=== PATIENT | male | born 1975 | race Caucasian/White ===

== ENCOUNTER → 2018-04-22 16:49 | Outpatient (CLI) | payer OTHER, SELFPAY ==
--- NOTE | 2018-04-22 16:52 | CT_ITS ---
STUDY: CT MAXILLOFACIAL SINUSES REASON FOR EXAM: Male, 43 years old. Sinusitis RADIATION DOSAGE (If Supplied By Facility): CTDIvol = ( 33.45 ) mGy, DLP = ( 871.67 ) mGycm TECHNIQUE: The patient was scanned in a multi detector CT scanner. High resolution axial imaging was performed without the administration of intravenous contrast material. Sagittal and coronal images were reconstructed. Individualized dose optimization techniques were used for this CT. COMPARISON: None. FINDINGS: FRONTAL SINUSES: Minimal mucoperiosteal thickening of the left frontal sinus. ETHMOIDAL SINUSES: Mild mucoperiosteal thickening of the anterior ethmoid air cells, left greater than right. MAXILLARY SINUSES: Mild mucoperiosteal thickening of bilateral maxillary sinuses with associated bilateral diffuse retention cyst formation, left greater than right. SPHENOIDAL SINUSES: Normal aeration, without mucosal inflammatory disease. There is patency of the bilateral maxillary infundibuli with normal uncinate processes, ethmoid bullae, and hiatus semilunaris. Mild prominence of the turbinate mucosa which mildly narrows the nasal passageways. Normal midline nasal septum. Mastoid air cells are clear. The visualized bilateral orbital contents are normal. CT/Sinus/Facial Bone IMPRESSION: Mild chronic paranasal sinus disease Electronically Signed: Magdiel Good MD at 3:11 EST Tel , Service support ,
== END ==
PROVIDERS: Family Provider Preventive Medicine Occupational Medicine; PCP Preventive Medicine Occupational Medicine; Referring Provider Otolaryngology; Visit Provider Otolaryngology
DX: J32.1 Chronic frontal sinusitis (principal); R51 Headache
CPT/HCPCS: 70486

== ENCOUNTER → 2022-03-22 | Outpatient (CLI) | payer OTHER, SELFPAY | END | disposition home or self-care (01) | LOC: LABSPEC 15:02 | PROVIDERS: PCP Preventive Medicine Occupational Medicine; Referring Provider Otolaryngology; Visit Provider Otolaryngology | DX: J02.9 Acute pharyngitis, unspecified (principal) | CPT/HCPCS: 87070 ==

== ENCOUNTER → 2024-09-12 | Outpatient (CLI) | payer OTHER, SELFPAY ==
--- NOTE | 2024-09-12 17:54 | CT_ITS ---
PROCEDURE: SOFT TISSUE NECK WITH CONTRAST 09/12/2024 REASON FOR EXAM: PAIN TECHNIQUE: SOFT TISSUE NECK WITH CONTRAST CONTRAST: 75 VOLUME: Isovue-300 mL One or more dose reduction techniques were used (e.g., Automated exposure control, adjustment of the mA and/or kV according to patient size, use of iterative reconstruction technique). RADIATION DOSE SUMMARY: CTDlvol: 15 mGy DLP: 475 mGycm COMPARISON: None FINDINGS: The lung apices are clear. Symmetric appearance of the nasopharynx. No parotid mass. Normal oral cavity and tongue base. Normal submandibular glands. No enlarged cervical lymph nodes. No palatine tonsil asymmetry. Normal epiglottis. Symmetric vocal folds. Normal thyroid. No subglottic narrowing. Incidental note is made of a small calcification near the hilum of the left submandibular gland which measures 5 mm. No associated sialoadenitis. CT/Soft Tissue Neck WITH Contrast IMPRESSION: Left-sided submandibular sialolithiasis near the hilum of the gland [facility]
== END | disposition home or self-care (01) ==
PROVIDERS: PCP Preventive Medicine Occupational Medicine; Referring Provider Otolaryngology; Visit Provider Otolaryngology
DX: K11.20 Sialoadenitis, unspecified (principal); R22.1 Localized swelling, mass and lump, neck
CPT/HCPCS: 70491; Q9967

== ENCOUNTER → 2024-11-24 | Outpatient (CLI) | payer OTHER, SELFPAY ==
--- OUTSIDE RECORDS SUMMARY | 2024-06-12 14:00 | XMS RPT_ITS ---
Author Name Auto Generated Organization [facility] Care Team Providers Care Automotive Buyer Name Role Phone UCBA ESCOTO DO Attending Unavailable CUBA ESCOTO DO Primary Care Unavailable REEMA URBANO Attending Unavailable CUBA ESCOTO Primary Care Unavailable PROBLEMS DATE TYPE CONDITION / CODE ATTENDING STATUS [facility] 11/27/2023 Admitting Diagnosis Episodic cluster headache, intractable / G44.011(ICD-10) REEMA URBANO Active [facility] SHS PROCEDURES No Procedure Records Found RESULTS CBC Collected: 5 2:04 PM Status: F Source: [facility] TYPE CODE TESTS RESULT OUT OF RANGE REFERENCE UNITS LAB WBC(LOINC) WBC 7.9 4.5-10.8 10 3/mcL LAB RBCCT(LOINC) RBC 5.04 4.50-6.00 10 6/mcL LAB HGB(LOINC) Hgb 14.6 13.0-17.5 G/dL LAB HCT(LOINC) Hct 43.5 40.0-52.0 % LAB MCV(LOINC) MCV 86.3 81.0-100.0 fL LAB MCH(LOINC) MCH 29.0 27.0-33.0 pg LAB MCHC(LOINC) MCHC 33.6 32.0-36.0 G/dL LAB RDW(LOINC) RDW 13.4 11.5-15.5 % LAB PLT(LOINC) Platelet 315 150-450 10 3/mcL LAB MPV(LOINC) MPV 7.3 6.4-10.5 fL Performed By: #### LIPID, CM P, TSH, ANEU, CBC, ADIFF, FT4, GFR, FT3 #### [address] [address] .AUTO DIFF Collected: 06/12/2024 2:04 PM Status: F Source: [facility] TYPE CODE TESTS RESULT OUT OF RANGE REFERENCE UNITS LAB FABRIZIO(LOINC) Neutrophil % 67.5 50.0-75.0 % LAB LYM(LOINC) Lymphocyte % 22.3 20.0-40.0 % LAB MON(LOINC) Monocyte % 5.9 2.0-13.0 % LAB EO(LOINC) Eosinophil % 3.6 0.0-6.0 % LAB BAS(LOINC) Basophil % 0.7 0.0-2.5 % LAB ABLYM(LOINC) Lymphocyte, Absolute 1.8 0.9-4.3 10 3/mcL LAB MELA(LOINC) Monocyte, Absolute 0.5 0.1-1.4 10 3/mcL LAB AEOS(LOINC) Eosinophil, Absolute 0.3 0.0-0.7 10 3/mcL LAB ABAS(LOINC) Basophil, Absolute 0.1 0.0-0.3 10 3/mcL Performed By: #### LIPID, CM P, TSH, ANEU, CBC, ADIFF, FT4, GFR, FT3 #### [address] [address] .NEUABS Collected: 2:04 PM Status: F Source: [facility] TYPE CODE TESTS RESULT OUT OF RANGE REFERENCE UNITS LAB ANEU(LOINC) Neutrophil, Absolute 5.3 2.3-8.1 10 3/mcL Performed By: #### LIPID, CM P, TSH, ANEU, CBC, ADIFF, FT4, GFR, FT3 #### [address] [address] TSH Collected: 2:04 PM Status: F Source: [facility] TYPE CODE TESTS RESULT OUT OF RANGE REFERENCE UNITS LAB TSH(LOINC) TSH 0.46 0.36-3.74 mcIU/mL Performed By: #### LIPID, CM P, TSH, ANEU, CBC, ADIFF, FT4, GFR, FT3 #### [address] [address] FT4 Collected: 2:04 PM Status: F Source: [facility] TYPE CODE TESTS RESULT OUT OF RANGE REFERENCE UNITS LAB FT4(LOINC) Free T4 0.85 0.76-1.46 ng/dL Performed By: #### LIPID, CM P, TSH, ANEU, CBC, ADIFF, FT4, GFR, FT3 #### [address] [address] CMP Collected: 06/12/2024 2:04 PM Status: F Source: [facility] TYPE CODE TESTS RESULT OUT OF RANGE REFERENCE UNITS LAB GLU(LOINC) Glucose Level 99 70-105 mg/dL LAB NA(LOINC) Sodium Level 142 136-145 mmol/L LAB K(LOINC) Potassium Level 4.4 3.5-5.1 mmol/L LAB CL(LOINC) Chloride 106 98-107 mmol/L LAB CO2(LOINC) CO2 30 High 22-29 mmol/L LAB EBAL(LOINC) Electrolyte Balance 6.0 4.0-15.0 mEq/L LAB BUN(LOINC) BUN 17 7-18 mg/dL LAB CRE(LOINC) Creatinine Lvl (s) 0.98 0.70-1.30 mg/dL Result Comment: Testing perf ormed on Siemens Dimension EXL analyzer using a modified kinetic Chito technique. LAB BC(LOINC) BUN/Creatinine Ratio 17 7-27 ratio LAB CA(LOINC) Calcium Lvl 8.9 8.4-10.2 mg/dL LAB PROT(LOINC) Total Protein 7.0 6.4-8.2 G/dL LAB ALB(LOINC) Albumin Level 4.4 3.5-5.0 G/dL LAB GLB(LOINC) Globulin 2.6 1.5-3.8 G/dL LAB AG(LOINC) A/G Ratio 1.7 1.1-2.5 ratio LAB BILT(LOINC) Bili Total 0.4 0.2-1.0 mg/dL Result Comment: Use of this assay is not recommended for patients undergoing treatment with eltrombopag due to the potential for falsely elevated results. LAB AP(LOINC) Alk Phos 87 40-135 U/L LAB AST(LOINC) AST/SGOT 15 10-40 U/L LAB ALT(LOINC) ALT/SGPT 28 16-63 U/L Performed By: #### LIPID, CM P, TSH, ANEU, CBC, ADIFF, FT4, GFR, FT3 #### [address] [address] .GFR Collected: 06/12/2024 2:04 PM Status: F Source: [facility] TYPE CODE TESTS RESULT OUT OF RANGE REFERENCE UNITS LAB eGFR(LOINC) Estimated Glomerular Filtration Rate 96 ml/min/1. 73sqm Result Comment: Stages of Chronic Kidney Disease (CKD) Stage Description eGFR(ml/min/1.73 sq.m.) CKD 1 Normal kidney function or >=90 normal kindney function with possible kidney damage (ex. Proteinuria) CKD 2 Kidney damage with mild loss 60-89 of kidney function CKD 3a Mild to moderate loss of kidney 45-59 function CKD 3b Moderate to severe loss of 30-44 of kindey function CKD 4 Severe loss of kidney function 15-29 CKD 5 Kidney failure <15 Note: (go live 2024) the eGFR calculation was updated to the 2020 CKD-EPI creatinine equation without a race factor to calculate the eGFR results. Performed By: #### LIPID, CM P, TSH, ANEU, CBC, ADIFF, FT4, GFR, FT3 #### [address] [address] LIPID Collected: 06/12/2024 2:04 PM Status: F Source: [facility] TYPE CODE TESTS RESULT OUT OF RANGE REFERENCE UNITS LAB CHOL(LOINC) Cholesterol 181 0-200 mg/dL Result Comment: Cholesterol Reference Interval: Less than 200 Desirable 200-239 Borderline high risk 240 and above High risk LAB TRIG(LOINC) Triglycerides 176 High 0-150 mg/dL Result Comment: Triglyceride Reference Interval: Less than 150 Normal 150-199 Borderline high risk 200-499 High risk 500 or higher Very high risk LAB HD(LOINC) HDL Cholesterol 47 40-60 mg/dL LAB LDL(LOINC) LDL Cholesterol 99 0-130 mg/dL Performed By: #### LIPID, CM P, TSH, ANEU, CBC, ADIFF, FT4, GFR, FT3 #### [address] [address] FT3 Collected: 2:04 PM Status: F Source: [facility] TYPE CODE TESTS RESULT OUT OF RANGE REFERENCE UNITS LAB FT3(LOINC) Free T3 3.28 2.30-4.00 pg/mL Performed By: #### LIPID, CM P, TSH, ANEU, CBC, ADIFF, FT4, GFR, FT3 #### [id number] [place], [place] [address] 36 Observed: 05/21/2024 3:22 PM Status: COMPLETED Source: [facility] Patient has been rescheduled 36 Observed: 05/21/2024 1:55 PM Status: COMPLETED Source: [facility] Lm for patient to call the o ffice back, please let HIM know that HIS appointment on 11/26/24 will need to be rescheduled due to provider being out of the office. PATINS Observed: 11/27/2023 1:00 PM Status: COMPLETED Source: [facility] Will send 90 day script for Verapamil to dose as needed Nurtec as needed-may dose every 48 hours Samples of Ubrelvy-may dose at onset and repeat in 2 hours but no more than 2 pills in 24 hours Follow up in 1 year or sooner if needed PROGRESS NOTE Observed: 11/27/2023 1:00 PM Status: COMPLETED Source: [facility] 6 samples of ubrelvy 100 mg were given to the patient Lot:[id number] PROGRESS NOTE Observed: 11/27/2023 1:00 PM Status: COMPLETED Source: [facility] Visit type: Established Vanessa ent Reason for Visit: Follow-up and Headache Assessment and Plan 1. Intractable episodic cluster headache - verapamil SR (Calan SR) 180 MG ER tablet; Take 1 tablet (180 mg) by mouth Nightly. Do not crush or chew., Starting Sun11/27/2023, Until Sun11/26/2024, Normal Subjective HPI: Imitrex caused fevers and muscle spasms Verapamil as needed Headaches most often start in March 10:30pm-12am will start. Lasting 2-3 weeks This past March he was ill with strep throat. Severe headache and neck pain. He opted not to start Verapamil. Only dosed Nurtec In May headaches started in the morning Nurtec is normally effective Few headaches over the Summer This past yr has been very stressful REVIEW OF SYSTEMS: Review of Systems Constitutional: Negative. HENT: Negative. Eyes: Negative. Respiratory: Negative. Cardiovascular: Negative. Gastrointestinal: Negative. Endocrine: Negative. Genitourinary: Negative. Musculoskeletal: Negative. Skin: Negative. Allergic/Immunologic: Negative. Neurological: Positive for headaches. Hematological: Negative. Psychiatric/Behavioral: Negative. Allergies Allergen Reactions Sumatriptan Muscle spasms, fever Outpatient Medications Prior to Visit Medication Sig Dispense Refill hydrOXYzine HCl (Atarax) 50 MG tablet Rimegepant Sulfate (Nurtec) 75 MG tablet dispersible 75 mg. Rimegepant Sulfate (Nurtec) 75 MG tablet dispersible Take 1 tablet (75 mg) by mouth Daily as needed (migraine). 8 tablet 1 verapamil SR (Calan SR) 180 MG ER tablet Take 1 tablet (180 mg) by mouth Nightly. Do not crush or chew. (Patient not taking: Reported on 11/27/2023) 30 tablet 11 No facility-administered medications prior to visit. Past Medical History: Diagnosis Date Foreman palsy Chronic kidney disease Cluster headache Headache Migraine Social History Tobacco Use Smoking status: Never Smokeless tobacco: Never Substance Use Topics Alcohol use: Never Past Surgical History: Procedure Laterality Date KNEE SURGERY Left 01/2022 LITHOTRIPSY NASAL SINUS SURGERY Family History Problem Relation Name Age of Onset Dementia Paternal Grandmother Beverly Objective Vitals: BP 120/80 (BP Location: Left arm, Patient Position: Sitting, BP Cuff Size: Large adult) Pulse 73 Ht 6' 2 (1.88 m) Wt 238 lb 6.4 oz (108 kg) BMI 30.61 kg/m? General Appearance: Patient is in no apparent distress. Head is normocephalic, atraumatic Cardiovascular: Regular rate and rhythm. No heart murmurs. No carotid bruit Neurologic: Mentation: Alert and oriented x 3 [address], [address] and time. Speech and Language: Speech and language normal Concentration and Attention: Concentration normal Memory: Memory normal Fund of Knowledge: Fund of knowledge normal Cranial Nerves: II, III, IV, V, , VII, VIII, IX, X, XI, XII examined and were intact. Motor: Strength: Strength 5 out of 5 with normal tone Alternating Movements: Normal Cogwheel Rigidity: None Tone: Tone is normal Tremor / Involuntary Movements: None Deep Tendon Reflexes: 1 out of 4 symmetrical in all four limbs. Sensory: Normal sensation upper and lower extremities Coordination: Normal coordination upper and lower extremities Gait and Station: Station is normal. Gait is normal Data Reviewed and Summarized DIAGNOSTIC TESTING CBC: No results found for: WBC, RBC, HGB, HCT, MCV, MCH, MCHC, RDW, PLT, MPV CMP: No results found for: NA, K, CL, CO2, BUN, CREATININE, AGRATIO, LABGLOM, GLUCOSE, GLU, PROT, CALCIUM, BILITOT, ALKPHOS, AST, ALT BMP: No results found for: NA, K, CL, CO2, BUN, CREATININE, CALCIUM, LABGLOM, GLUCOSE, GLU PT/INR: No results found for: PROTIME, INR PTT: No results found for: APTT, PTT[APTT} FLP: No results found for: CHLPL, TRIG, HDL, LDLCALC, LDLDIRECT TSH: No results found for: TSH VITAMIN B12: No results found for: [id number] No results found for: PHENYTOIN, PHENOBARB, VALPROATE, CBMZ No components found for: TOPIRA @RESULTINGLABINFO@ No results found for: LEVETIRACETA, FERRITIN, CRP, JULITA, ANCA No results found for: MARLON, IMMUNOGLOBUL, OLIGOBANDS No results found for: [id number], HEPCAB No results found for: CRP, ANATITER, ANCA FERRITIN: No results found for: FERRITIN ---- XR CERVICAL SPINE W OBLIQUES FLEXION AND EXTENSION Ordering Provider: ASHUTOSH TEMPLE ORIGINAL EXAMINATION: SEVEN X-RAY VIEWS OF THE CERVICAL SPINE INCLUDING FLEX/EX VIEWS 09/07/2020 4:27 PM COMPARISON: None. HISTORY: ORDERING SYSTEM PROVIDED HISTORY: CERVICALGIA Reason for Exam: CERVICALGIA FINDINGS: Vertebral body height and disc spaces are normal. Neutral lateral view shows minimal anterolisthesis at C3-4 and C4-5, and this reduces with extension. With flexion, the finding is unchanged. Posterior elements and neural foramina are unremarkable with only very minimal narrowing of the left C3-4 and C4-5 foramina from uncinate process spurring. No other posterior element abnormality. IMPRESSION: Minimal anterolisthesis at several levels which reduces at extension. I have personally reviewed the images of this examination and agree with the resident's finding and interpretation. Interpreted by: Toby Copeland Preliminary Report By: Ilana Jennings Electronically signed By Toby Copeland Dictated Date: 09/08/2020 8:14:56 AM Prelim Date: 09/08/2020 10:48:00 AM Sign Date: 09/08/2020 11:49:37 AM Ordering Provider: [facility]OSH TEMPLE [facility] IMPRESSION and PLAN: Problem List Items Addressed This Visit None Visit Diagnoses Intractable episodic cluster headache Relevant Medications verapamil SR (Calan SR) 180 MG ER tablet Will send 90 day script for Verapamil to dose as needed Nurtec as needed-may dose every 48 hours Samples of Ubrelvy-may dose at onset and repeat in 2 hours but no more than 2 pills in 24 hours Follow up in 1 year or sooner if needed No problem-specific Assessment & Plan notes found for this encounter. Reema Urbano, PERICO - QUINCY I spent 20 minutes caring for this patient today, reviewing labs, records, seeing the patient, documenting in the record and arranging for studies. Electronically signed by @ADDI@ on @TDNR@ at @NOWNR@ OFFICE VISIT Observed: 11/27/2023 1:00 PM Status: COMPLETED Source: [facility] [id number] Crescencio Becker [birth year] Date Provider Department Center 11/27/2023 [id number] RODRIGUES [facility] FABRIZIO None Family History Problem Relation Age of Onset Dementia Paternal Grandmother Family Status - Relation Status Age at Mother Alive Father Alive Paternal Grandmother Level of Service:86400 DC OFFICE/OUTPATIENT ESTABLISHED LOW MDM 20 MIN Reason for Visit and Comments: Follow-up [428682] Headache [52] ALLERGIES No Allergies Records Found ENCOUNTERS ADMIT/DISCHARGE ACCOUNT NUMBER ADMITTING ENCOUNTER CLASS LOC ATION SOURCE 06/12/2024/ 5 [id number] Ambulatory [place] MAINBuilding: [facility] 11/27/2023/ [id number] [place] [address] PAYERS ENCOUNTER GUARANTOR PAYER SUBSCRIBER SOURCE 06/12/2024 CRESCENCIO Hartley DELB: [place] [address]~[email or web address]@ [employer] () Primary Insurance:AUCARE INSCOPolicy Number: [id number] ve Date:[id number] Name:[facility] [address] [place] [phone]: CRESCENCIO Hartley DELB: [id number] [place] [address]Aqz: (HP) () [facility] 11/27/2023 Primary Insurance:AULTCAREPo licy Number: [id number] Date:6723-02-31Ncyv Name:Commercial CRESCENCIO Hartley DELB: [id number] [place] [address] [facility]
--- OUTSIDE RECORDS SUMMARY | 2024-06-12 14:00 | XMS RPT_ITS ---
Author Name Auto Generated Organization OHIP Care Team Providers Care Machine Hand Name Role Phone CUBA ESCOTO DO Attending Unavailable CUBA ESCOTO DO Primary Care Unavailable REEMA URBANO Attending Unavailable CUBA ESCOTO Primary Care Unavailable PROBLEMS DATE TYPE CONDITION / CODE ATTENDING STATUS [facility] 11/27/2023 Admitting Diagnosis Episodic cluster headache, intractable / G44.011(ICD-10) REEMA URBANO Active [facility]S PROCEDURES No Procedure Records Found RESULTS CBC Collected: 5 2:04 PM Status: F Source: [facility] TYPE CODE TESTS RESULT OUT OF RANGE [...] ANEU, CBC, ADIFF, FT4, GFR, FT3 #### [address] [address] .AUTO DIFF Collected: 06/12/2024 2:04 PM Status: F Source: [facility] TYPE CODE TESTS RESULT OUT OF RANGE REFERENCE UNITS LAB FABRIZOI(LOINC) Neutrophil % 67.5 50.0-75.0 % LAB LYM(LOINC) [...] ANEU, CBC, ADIFF, FT4, GFR, FT3 #### [address] [address] .NEUABS Collected: 2:04 PM Status: F Source: [facility] TYPE CODE TESTS RESULT OUT OF RANGE REFERENCE UNITS LAB ANEU(LOINC) Neutrophil, Absolute 5.3 2.3-8.1 10 3/mcL Performed By: #### LIPID, CM P, TSH, ANEU, CBC, ADIFF, FT4, GFR, FT3 #### [address] [address] TSH Collected: 2:04 PM Status: F Source: [facility] TYPE CODE TESTS RESULT OUT OF RANGE REFERENCE UNITS LAB TSH(LOINC) TSH 0.46 0.36-3.74 mcIU/mL Performed By: #### LIPID, CM P, TSH, ANEU, CBC, ADIFF, FT4, GFR, FT3 #### [address] [address] FT4 Collected: 2:04 PM Status: F Source: [facility] TYPE CODE TESTS RESULT OUT OF RANGE REFERENCE UNITS LAB FT4(LOINC) Free T4 0.85 0.76-1.46 ng/dL Performed By: #### LIPID, CM P, TSH, ANEU, CBC, ADIFF, FT4, GFR, FT3 #### [address] [address] CMP Collected: 06/12/2024 2:04 PM Status: F Source: [facility] TYPE CODE TESTS RESULT OUT OF RANGE [...] ANEU, CBC, ADIFF, FT4, GFR, FT3 #### [address] [address] .GFR Collected: 06/12/2024 2:04 PM Status: F Source: [facility] TYPE CODE TESTS RESULT OUT OF RANGE [...] ANEU, CBC, ADIFF, FT4, GFR, FT3 #### [address] [address] LIPID Collected: 06/12/2024 2:04 PM Status: F Source: [facility] TYPE CODE TESTS RESULT OUT OF RANGE [...] ANEU, CBC, ADIFF, FT4, GFR, FT3 #### [address] [address] FT3 Collected: 2:04 PM Status: F Source: [facility] TYPE CODE TESTS RESULT OUT OF RANGE REFERENCE UNITS LAB FT3(LOINC) Free T3 3.28 2.30-4.00 pg/mL Performed By: #### LIPID, CM P, TSH, ANEU, CBC, ADIFF, FT4, GFR, FT3 #### [address] [place], [place] [address] 36 Observed: 05/21/2024 3:22 PM Status: COMPLETED Source: [facility] Patient has been rescheduled 36 Observed: 05/21/2024 1:55 PM Status: COMPLETED Source: [facility] Lm for patient to call the o ffice back, please let HIM know that HIS appointment on 11/26/24 will need to be rescheduled due to provider being out of the office. PATINS Observed: 11/27/2023 1:00 PM Status: COMPLETED Source: [facility] Will send 90 day script for Verapamil to dose as needed Nurtec as needed-may dose every 48 hours Samples of Ubrelvy-may dose at onset and repeat in 2 hours but no more than 2 pills in 24 hours Follow up in 1 year or sooner if needed PROGRESS NOTE Observed: 11/27/2023 1:00 PM Status: COMPLETED Source: [facility] 6 samples of ubrelvy 100 mg were given to the patient Lot:[id number] PROGRESS NOTE Observed: 11/27/2023 1:00 PM Status: COMPLETED Source: [facility] Visit type: Established Vanessa ent Reason for [...] TSH VITAMIN B12: No results found for: [id number] No results found for: PHENYTOIN, PHENOBARB, VALPROATE, CBMZ No components found for: TOPIRA @RESULTINGLABINFO@ No results found for: LEVETIRACETA, FERRITIN, CRP, JULITA, ANCA No results found for: MARLON, IMMUNOGLOBUL, OLIGOBANDS No results found for: [id number], HEPCAB No results found for: CRP, ANATITER, [...] 09/08/2020 11:49:37 AM Ordering Provider: ASHUTOSH TEMPLE [facility] IMPRESSION and PLAN: Problem List Items Addressed [...] Observed: 11/27/2023 1:00 PM Status: COMPLETED Source: [facility] [id number] Crescencio Becker 01/[birth year] Date Provider Department Center 11/27/2023 [id number] RODRIGUES [facility] FABRIZIO None Family History Problem Relation Age of Onset Dementia Paternal Grandmother Family Status - Relation Status Age at Mother Alive Father Alive Paternal Grandmother Level of Service:58022 MI OFFICE/OUTPATIENT ESTABLISHED LOW MDM 20 MIN Reason for Visit and Comments: Follow-up [857843] Headache [52] ALLERGIES No Allergies Records Found ENCOUNTERS ADMIT/DISCHARGE ACCOUNT NUMBER ADMITTING ENCOUNTER CLASS LOC ATION SOURCE 06/12/2024/ 5 [id number] [place] [facility]Building: [facility] 11/27/2023/ [address] [id number] [place] [address] PAYERS ENCOUNTER GUARANTOR PAYER SUBSCRIBER SOURCE 06/12/2024 CRESCENCIO Hartley DELB: [place] [address]~[email or web address]@ [email or web address] () Primary Insurance:AUCARE INSCOPolicy Number: [id number] Date:[id number] Name:[facility] AMADA [address] [place] [phone]: CRESCENCIO Hartley DELB: [id number] [place] [address]Tnm: (HP) () [facility] 11/27/2023 Primary Insurance:AULTCAREPo licy Number: [id number] Date:4115-65-46Ghzw Name:Commercial CRESCENCIO Hartley DELB: [id number] [place] [address] [facility]
== END | disposition home or self-care (01) ==
PROVIDERS: PCP Preventive Medicine Occupational Medicine; Referring Provider Otolaryngology Otolaryngology/Facial Plastic Surgery; Visit Provider Otolaryngology Otolaryngology/Facial Plastic Surgery
DX: J32.8 Other chronic sinusitis (principal)
CPT/HCPCS: 87070; 87077; 87205